=== PATIENT | female | born 1990 | race Caucasian/White ===

== ENCOUNTER 2021-12-28 07:43 | Emergency (ER) | payer OTHER ==
[2021-12-28] MEDS ORDERED: BUPIVACAINE 0.5% PF 10 ML VIAL SUBQ STA (08:53)
[2021-12-28] MEDS ORDERED: HYDROmorphone 1 MG/ML CARPUJECT IM STA (08:53)
--- NOTE | 2021-12-28 08:56 | ED Physician Documentation ---
PD HPI UPPER EXT INJURY - Stated complaint Stated Complaint: LT WRIST PX - Chief complaint Chief Complaint: Trauma Ext - History obtained from History obtained from: Patient - Additonal information Additional information: The patient comes to the emergency department chief complaint of left wrist injury after tripping over her dog and falling last night. She states she noticed pain in the wrist and this morning, had some swelling. She states that she was not injured in any other way. She has a little bit of tingling in her index and middle fingertips but otherwise, has intact motor and sensory capabilities as far she can tell. No other complaints at this time. Review of Systems Ten Systems: 10 systems reviewed and negative Constitutional: reports: Reviewed and negative Eyes: reports: Reviewed and negative Ears: reports: Reviewed and negative Nose: reports: Reviewed and negative Throat: reports: Reviewed and negative Cardiac: reports: Reviewed and negative Respiratory: reports: Reviewed and negative GI: reports: Reviewed and negative : reports: Reviewed and negative Skin: reports: Reviewed and negative Musculoskeletal: reports: Joint pain, Joint swelling Neurologic: reports: Reviewed and negative Psychiatric: reports: Reviewed and negative Endocrine: reports: Reviewed and negative Immunocompromised: reports: Reviewed and negative PD PAST MEDICAL HISTORY - Present Medications Home Medications: Ambulatory Orders Medication Instructions Recorded Confirmed HYDROcod/ACETAM 5/325 [Kaaawa 5/325] 1 - 2 tablet PO Q6H PRN #20 tablet 12/28/21 Ondansetron Odt [Zofran] 4 mg TL Q6H PRN #10 tablet 12/28/21 - Allergies Allergies/Adverse Reactions: Allergies Allergy/AdvReac Type Severity Reaction Status Date / Time No Known Drug Allergies Allergy Verified 12/28/21 07:53 PD ED PE NORMAL - Vitals Vital signs reviewed: Yes - General General: Alert and oriented X 3, No acute distress, Well developed/nourished - HEENT HEENT: Atraumatic, PERRL, EOMI, Moist mucous membranes - Neck Neck: Supple, no meningeal sign - Cardiac Cardiac: Strong equal pulses - Respiratory Respiratory: No respiratory distress - Derm Derm: Warm and dry, No rash, Other (Contusion over flexor aspect of right wrist.) - Extremities Extremities: No deformity, Other (Edema, point tenderness, and limited range of motion at right wrist. Mild deformity over the medial aspect.) - Neuro Neuro: Alert and oriented X 3, No motor deficit, No sensory deficit - Psych Psych: Normal mood, Normal affect Results - Vitals Vitals: Vital Signs - 24 hr 12/28/21 12/28/21 07:50 10:23 Temperature 37.4 C Heart Rate 107 H 94 Respiratory 20 16 Rate Blood Pressure 148/97 H 131/94 H O2 Saturation 95 96 Oxygen O2 Source Room air - Rads (name of study) Right wrist x-ray series Radiology: Final report received, EMP read indepedently, See rad report (Impacted distal right radius fracture) Procedures - Reduction Body part reduced: Left, Wrist (Reduction attempted just prior to splint placement.) Fracture or dislocation: Fracture Anesthesia: Hematoma block, Dilaudid Reduction aftercare: NV intact, Splint applied, Sling PD MEDICAL DECISION MAKING - ED course Complexity details: reviewed results, re-evaluated patient, considered differential, d/w patient ED course: The patient was worked up with x-ray which showed an impacted left radial fracture at the wrist. The patient was placed in finger traps for about 15 minutes and then hematoma block was performed. The patient had also been given IM Dilaudid. Reduction of the fracture was undertaken following this and then splint was placed. There was some improvement of the alignment of the fracture in AP plane, though there was still dorsal displacement of the distal fragments. Unfortunately, we did not have orthopedics library paraprofessional today, but I have given the patient follow-up information for orthopedic clinic, and advised her to call immediately to make a follow-up appointment for within the next week, as a suspect this fracture will require surgical repair. I did see Dr. Bullock in the hospital later today and I did discuss the patient's case with him and that she would be following up. Departure - Departure Disposition: 01 Home, Self Care Clinical Impression: Wrist fracture, left Qualifiers: Encounter type: initial encounter Fracture type: closed Qualified Code(s): S62.102A - Fracture of unspecified carpal bone, left wrist, initial encounter for closed fracture Condition: Stable Instructions: Distal Radius Fx, ED Fx Wrist General Follow-Up: Kai Bullock MD [Provider Admit Priv/Credential] - Prescriptions: HYDROcod/ACETAM 5/325 [Kaaawa 5/325] 1 - 2 tablet PO Q6H PRN #20 tablet PRN Reason: Pain Ondansetron Odt [Zofran] 4 mg TL Q6H PRN #10 tablet PRN Reason: Nausea / Vomiting Comments: Your x-rays today show that you have broken the end of your radius, the larger of your 2 forearm bones. You have been placed in a splint for this today and we have been able to straighten the break out a little, though it is still in need of further intervention. As such, it is very important that you call the orthopedic clinic today to set up the soonest possible follow-up appointment, preferably within the next couple of days. A prescription for pain medication has been sent to [facility] in [place], and you may pick this up today. Forms: Activity restrictions Discharge Date/Time: 12/28/21 10:26
--- NOTE | 2021-12-28 09:19 | XRAY Report ---
PROCEDURE: Wrist 4 View LT INDICATIONS: Trauma TECHNIQUE: 4 views of the wrist were acquired. COMPARISON: None FINDINGS: Bones: There is a moderately comminuted intra-articular fracture of the distal left radius with mild impaction and dorsal angulation of the distal fracture fragments. Overlying soft tissue edema. No guilherme picious osseous lesions. Scaphoid view: Limited scaphoid view secondary to patient positioning. The scaphoid appears grossly intact without definite fracture. Scapholunate interval measures at the upper limits of normal. Soft tissues: No suspicious soft tissue calcifications. IMPRESSION: Moderately comminuted intra-articular fracture of the distal left radius with impaction and dorsal an gulation of distal fracture fragments. Reviewed by: Dony Toure MD on 12/28/2021 8:18 AM [facility] Approved by: Dony Toure MD on 12/28/2021 8:18 AM [facility] Station ID: [id number]
--- NOTE | 2021-12-28 10:22 | XRAY Report ---
PROCEDURE: Wrist 2 View LT INDICATIONS: POST-REDUCTION TECHNIQUE: 2 views of the wrist were acquired. COMPARISON: Wrist x-ray 12/28/2021 FINDINGS: Bones: There has been interval reduction of previous distal radial comminuted fracture. There is pers istent significant dorsal angulation of the distal fragment overall unchanged in appearance. Soft tis sues: No suspicious soft tissue calcifications. IMPRESSION: Persistent significant dorsal angulation of distal radial fracture. Reviewed by: Vee Woods MD on 12/28/2021 10:21 AM [facility] Approved by: Vee Woods MD on 12/28/2021 10:21 AM [facility] Station ID: [id number]
[2021-12-28 10:25] VITALS: BP 131/94
== END 2021-12-28 10:26 | disposition home or self-care (01) ==
LOC: ED 07:43
DX: S52.502A Unspecified fracture of the lower end of left radius, initial encounter for closed fracture (principal); W18.31XA Fall on same level due to stepping on an object, initial encounter
CPT/HCPCS: 25605; 73100; 73110; 99282; 99283; J1170

== ENCOUNTER 2022-01-04 08:57 | Day surgery (SDC) | payer OTHER ==
[2022-01-04] MEDS ORDERED: ACETAMINOPHEN 1,000 MG/100 ML 100 ML IV ONE (09:08)
[2022-01-04] MEDS ORDERED: CELECOXIB 100 MG CAPSULE PO ONE (09:09)
[2022-01-04 09:24] LABS: HCG UR QUAL NEGATIVE
[2022-01-04] MEDS ORDERED: LACTATED RINGERS 1,000 ML IV ONE (09:26)
--- NOTE | 2022-01-04 09:50 | ANESTHESIA ---
Pre-Anesthesia VS, & Labs - Diagnosis left wrist fracture, distal radius - Procedure ORIF left distal radius fracture Vital Signs: Temp Pulse Resp BP Pulse Ox 37.0 C 95 20 134/89 H 98 01/04/22 09:11 01/04/22 09:11 01/04/22 09:11 01/04/22 09:11 01/04/22 09:11 Height: 5 ft 5 in Weight (kg): 93.1 kg Body Mass Index: 34.1 BMI Classification: Obese - NPO >8 hours - Is Patient ?: No Home Medications and Allergies Home Medications: Ambulatory Orders hydrOXYzine HCL [Hydroxyzine HCl] 1 tab PO HS 01/04/22 hydrOXYzine HCL [Hydroxyzine HCl] 1 tab PO HS 01/04/22 Allergies/Adverse Reactions: Allergies Allergy/AdvReac Type Severity Reaction Status Date / Time No Known Drug Allergies Allergy Verified 01/04/22 09:24 Anes History & Medical History - Medical History Cardiovascular: reports: None Pulmonary: reports: None Gastrointestinal: reports: None Urinary: reports: None Musculoskeletal: reports: None Skin: reports: None Smoking Status: Current some day smoker Exam General: Alert, Oriented x3, Cooperative Dental: WNL Mouth Openin Fingerbreadth Neck Mobility: Normal Mallampati classification: III Respiratory: Lungs clear Cardiovascular: Regular rate, Normal S1, Normal S2 Plan Anesthesia Type: General, Supraclavicular Block Consent for Procedure(s) Verified and Reviewed: Yes Code Status: Attempt Resuscitation ASA classification: 2-Mild systemic disease Is this case an emergency?: No
[2022-01-04] MEDS ORDERED: LIDOCAINE-MPF 2% 5 ML VIAL ONE (09:51)
[2022-01-04] MEDS ORDERED: MIDAZOLAM 2 MG/2 ML VIAL ONE (09:51)
[2022-01-04] MEDS ORDERED: fentaNYL 100 MCG/2 ML VIAL ONE (09:51)
[2022-01-04] MEDS ORDERED: ROPIVACAINE 0.5% PF 30 ML VIAL ONE (09:52)
[2022-01-04] MEDS ORDERED: DEXAMETHASONE 4 MG/ML VIAL ONE (09:52)
[2022-01-04] MEDS ORDERED: PROPOFOL 500 MG/50 ML 500 MG/50 ML VIAL ONE ×2 (10:06→11:08)
[2022-01-04] MEDS ORDERED: VANCOMYCIN 1 GM VIAL MC ONE (10:54)
[2022-01-04] MEDS ORDERED: KETAMINE 500 MG/10 ML VIAL ONE (11:08)
[2022-01-04] MEDS ORDERED: VANCOMYCIN 1 GM VIAL ONE (11:16)
[2022-01-04] MEDS ORDERED: PROPOFOL 200 MG/20 ML VIAL IVP ONE (12:36)
--- NOTE | 2022-01-04 12:56 | XRAY Report ---
PROCEDURE: OR C-Arm Procedure INDICATIONS: orif left distal radius TECHNIQUE: Intraoperative fluoroscopic views of the left hand COMPARISON: None. FINDINGS: 3 intraoperative fluoroscopic views demonstrate sideplate and screw fixation of the left distal radiu s. IMPRESSION: Intraoperative fluoroscopic views demonstrate near-anatomic alignment. Reviewed by: Koby Dunn on 01/04/2022 12:54 PM [facility] Approved by: Koby Dunn on 01/04/2022 12:54 PM [facility] Station ID: [id number]
[2022-01-04] MEDS ORDERED: LACTATED RINGERS 800 ML IV ONE (13:09)
--- NOTE | 2022-01-04 13:13 | OPERATIVE REPORT ---
Operative Report - General Procedure Date: 01/04/22 Planned Procedure: Open reduction internal fixation left distal radius Pre-Op Diagnosis: Displaced articular closed fracture left distal radius Procedure Performed: Open reduction internal fixation left distal radius using [employer] volar distal 3-hole radial plate and distal locking screws Post Op Diagnosis: Same as preoperative diagnosis - Procedure Note Primary Surgeon: Kai Bullock Anesthesia Provider: Kimmy Montenegro/ Carey Nava Anesthesia Technique: Combo spinal/epidural, Moderate sedation, Regional block Estimated Blood Loss (mL): 20 Indications: This is a healthy, active 31-year-old woman who fell onto her outstretched left wrist and sustained a closed displaced left distal radius fracture. She was seen in orthopedic consultation 2 days ago. She has a closed, displaced articular fracture of the distal radius. The articular component involves the lunate facet and the sigmoid notch. She did have some numbness to the fingers in the median nerve distribution but had intact sensation and motor function on exam. She reports that the numbness is improved since her office visit. Findings: Displaced distal radius fracture, mildly comminuted dorsally and radially with shortening and angulation at fracture site. The intra-articular component of the lunate facet seem to realign satisfactorily. Complications: None - Other Other Information/Narrative: The patient was brought to the operating room, placed in the supine position with the left arm placed upon an extension side table. A pneumatic tourniquet had been applied to the proximal left arm. The left upper extremity was prepped and draped in a sterile manner in the usual fashion. The C arm image intensifier was covered with sterile drape. A timeout procedure was performed by the entire operating room team and all were in agreement. Fingertrap traction was applied to all fingers and a traction bow as well. The left wrist and forearm was exsanguinated and pneumatic tourniquet was elevated to 200 mmHg. A longitudinal incision was begun at the wrist flexor crease and extended it proximally in a longitudinal fashion on the volar and radial aspect of the left forearm. The flexor carpi radialis tendon sheath was identified and split longitudinally. Care was taken to avoid the palmar cutaneous branch of the median nerve. The flexor carpi radialis was retracted in a radial direction exposing the floor of the tendon which was incised carefully. The flexor carpi radialis sheath was released distally to the trapezium. The flexor pollicis longus muscle belly and tendon were retracted in an ulnar direction to protect the median nerve and finger flexors. The pronator quadratus was released on the radial border leaving a cuff of tissue for later repair. The pronator quadratus was subperiosteally elevated to expose the floor of the distal radius and fracture site. The [employer] volar distal radial plate was applied. This was the standard with plate with 3 holes in the shaft. The guide block for drill bit and screws was applied to the plate. The reduction was achieved with longitudinal traction and a single percutaneous K wire from radial styloid. The plate position was adjusted and temporarily secured with K wires proximally and distally. The shaft oval hole was filled with a cortical screw to provide provisional stability to the plate and to be able to adjust that slightly distal. K wires were inserted in the distal end of the plate and position was checked on true AP and lateral views before inserting the distal locking screws. Care was taken to avoid the articular surface and to avoid dorsal penetration of the distal radial cortex. Unicortical distal locking screws were inserted and cortical nonlocking screws in the 3 shaft screw holes. Screw lengths, screw position were checked intermittently with the C arm image intensifier. The fracture was stable with good motion to the wrist and radial ulnar joint. A shuck test was performed on the distal radial ulnar joint was stable. The radiocarpal and radial ulnar joints were congruent with good alignment on AP ,lateral true wrist views as well as a axial or tangential view. The tourniquet was deflated after 91 minutes. The radial artery was intact and protected throughout the procedure using blunt retractors. The pronator q uadratus was closed with 2 0 strata fix suture. A gram of vancomycin powder was inserted. The subcutaneous tissue was closed with 2 0 strata fix and the subcuticular skin was closed with 3 0 strata fix. Dermabond was applied, allowed to dry over the incision. Xeroform, gauze, cast padding, volar fiberglass splint and Td wrap were applied. The patient tolerated the procedure well and received 2 g of Ancef prior to the incision.
[2022-01-04] MEDS ORDERED: KETOROLAC 15 MG/ML VIAL IVP STA (13:29)
[2022-01-04] MEDS ORDERED: oxyCODONE 5 MG TABLET PO PRN (13:30)
[2022-01-04 13:36] VITALS: BP 122/83
== END 2022-01-04 08:58 | disposition home or self-care (01) ==
LOC: SDS 08:57
PROVIDERS: ATTEND Orthopaedic Surgery
DX: S52.572A Other intraarticular fracture of lower end of left radius, initial encounter for closed fracture (principal); E66.9 Obesity, unspecified; Z68.34 Body mass index [BMI] 34.0-34.9, adult; F17.210 Nicotine dependence, cigarettes, uncomplicated
CPT/HCPCS: 25608; 81025; A9270; C1713; C1769; J0131; J3370; J7120

== ENCOUNTER 2022-02-21 08:45 | Outpatient (CLI) | payer OTHER ==
--- NOTE | 2022-02-21 15:02 | XRAY Report ---
PROCEDURE: Wrist 3 View LT INDICATIONS: WRIST FRACTURE TECHNIQUE: 2 views of the wrist were acquired. COMPARISON: X-ray left wrist, 12/28/2021. C-arm left wrist, 01/04/2022. FINDINGS: Bones: There are postsurgical changes related to open reduction and internal fixation of comminuted, intra-articular distal radial metaphyseal fracture. Soft tissues: No suspicious soft tissue calcifications. IMPRESSION: ORIF of comminuted intra-articular fracture of the distal radius. Reviewed by: Miguel Angel Dill MD on 02/21/2022 3:01 PM PDT Approved by: Miguel Angel Dill MD on 02/21/2022 3:01 PM PDT Station ID: [id number]
== END 2022-02-21 23:59 | disposition home or self-care (01) ==
LOC: DI.WOS 08:45
PROVIDERS: ATTEND Orthopaedic Surgery
DX: S52.572A Other intraarticular fracture of lower end of left radius, initial encounter for closed fracture (principal)

== ENCOUNTER 2022-04-25 08:00 | Outpatient (CLI) | payer OTHER ==
--- NOTE | 2022-04-26 11:54 | XRAY Report ---
PROCEDURE: Wrist 3 View LT INDICATIONS: WRIST FX TECHNIQUE: 3 views of the wrist were acquired. COMPARISON: X-ray of the wrist, 02/21/2022, 12/28/2021. FINDINGS: Bones: There are postsurgical changes with ORIF of comminuted intra-articular distal radial metaphyse al fracture. Alignment is stable. No suspicious bony lesions. Soft tissues: No suspicious soft tissue calcifications. IMPRESSION: ORIF of distal radial metaphyseal fracture with stable alignment. Reviewed by: Miguel Angel Dill MD on 04/26/2022 11:52 AM PDT Approved by: Miguel Angel Dill MD on 04/26/2022 11:52 AM PDT Station ID: [id number]
== END 2022-04-25 23:59 | disposition home or self-care (01) ==
LOC: DI.WOS 08:00
PROVIDERS: ATTEND Orthopaedic Surgery
DX: S52.572D Other intraarticular fracture of lower end of left radius, subsequent encounter for closed fracture with routine healing (principal)